=== PATIENT | female | born 1960 ===

== ENCOUNTER 2016-11-19 05:34 | Inpatient (IN) | payer OTHER ==
[2016-11-19] VITALS (18 sets, daily range): BP systolic 86–119; BP diastolic 49–66
[~2016-11-19] VITALS: Ht 165.1 cm; Wt 65.8 kg
[~2016-11-19 05:34] MED LIST: MELOXICAM7.5 MG PO
[2016-11-19] MEDS ORDERED: Thrombin 5000 units TOPIC ONE (06:11)
[2016-11-19] MEDS ORDERED: Bacitracin Oint 15gm Tube TOPIC ONE (06:11)
[2016-11-19] MEDS ORDERED: Bacitracin 50000 Units Vial ONE (06:13)
[2016-11-19] MEDS ORDERED: Thrombin 5000 units spray kit TOPIC ONE (06:13)
[2016-11-19] MEDS ORDERED: Gelfoam Absorbable 1gm powder pkt TOPIC ONE (06:13)
[2016-11-19] MEDS ORDERED: TYLENOL EXTRA500 MG ORAL (06:29)
[2016-11-19] MEDS ORDERED: Surgicel 4in x 8in TOPIC ONE (06:35)
[2016-11-19] MEDS ORDERED: Vancomycin 1gm inj IVPB ONE (06:52)
[2016-11-19] MEDS ORDERED: Vancomycin 1gm/D5W 275ml IVPB ONE ×2 (07:00)
[2016-11-19] MEDS ORDERED: Pantoprazole Inj IVP ONE (07:00)
[2016-11-19 07:26] LABS: APPEARANCE,URINE CLEAR; KETONES,URINE NEGATIVE (NEGATIVE); LEUKOCYTE ESTERASE ,URINE 1+ (NEGATIVE); NITRITE,URINE NEGATIVE (NEGATIVE); PH,URINE 7 (4.5-8.0); PROTEIN,URINE NEGATIVE (NEGATIVE); UROBILINOGEN,URINE NORMAL MG/DL (0.0-1.0)
[2016-11-19] MEDS ORDERED: Succinylcholine 20mg/ml 10ml vial ONE (07:30)
[2016-11-19] MEDS ORDERED: Morphine Sulfate 10mg/ml Inj ONE (07:30)
[2016-11-19] MEDS ORDERED: NS Irrig 1000ml ONE (07:30)
[2016-11-19] MEDS ORDERED: Dexamethasone 4mg/ml vial ONE (07:30)
[2016-11-19] MEDS ORDERED: Zemuron 50mg/5ml Inj IV ONE (07:30)
[2016-11-19] MEDS ORDERED: Propofol 10mg/ml 100ml btl IV ONE (07:30)
[2016-11-19] MEDS ORDERED: Sterile Water Irrig 1000ml IRRIG ONE (07:30)
[2016-11-19] MEDS ORDERED: fentaNYL 100 mcg/2 mL IV ONE (07:30)
[2016-11-19] MEDS ORDERED: Midazolam 2mg/2ml Inj ONE (07:30)
[2016-11-19] MEDS ORDERED: Ketorolac 30mg Inj ONE (07:30)
--- NOTE | 2016-11-19 07:34 | Pre-Procedure Note/Attestation ---
Pre-Procedure Note/Attestation Complete Prior to Procedure Planned Procedure: bilateral Procedure Narrative: Posterior lumbar decompressive surgery bilateral at L4-5 (redo-left side), discectomy, interspinous fusion at L4-5 with posterolateral arthrodesis, using allograft, autograft and bone marrow aspiration. Attestation I attest that I discussed the nature of the procedure; its benefits; risks and complications; and alternatives (and the risks and benefits of such alternatives ), prior to the procedure, with the patient (or the patient's legal sales representative electric service). I attest that, if there was a reasonable possibility of needing a blood transfusion, the patient (or the patient's legal sales representative electric service) was given the [place] [facility] standardized written summary, pursuant to the Pablo Elsa Blood Safety Act ([place] Health and Safety Code # 1645, as amended). I attest that I re-evaluated the patient just prior to the surgery and that there has been no change in the patient's H&P, except as documented below: TORIBIO LYLES Nov 19, 2016 07:34
[2016-11-19 07:36] LABS: BACTERIA,URINE OCCASIONAL /HPF; RBC,URINE 0-2 /HPF (0 - 2); SQUAMOUS EPITHELIAL CELL,UR OCCASIONAL /LPF (NONE/OCC)
--- NOTE | 2016-11-19 07:46 | General Progress Note ---
Progress Note Progress Note Neurosurgery preop Note I reviewed all of the preop lab and discussed with Anesthesiologist. The U/a from Dr. Pichardo's labs showed 10-25 WBC. She is and has been completely asymptomatic without any signs of a urinaru tract infection. A repeat U/a was done this am which is clean.will proceed with the plan surgery. Risk, benefits and alternative were explaine dto her and with a manager golf. She signed the consent to proceed. Laboratory Tests Test 11/19/16 07:11 Urine Color Pale yellow Urine Appearance Clear Urine pH 7 (4.5-8.0) Urine Specific [place] 1.005 (1.005-1.035) Urine Protein Negative (NEGATIVE) Urine Glucose (UA) Negative (NEGATIVE) Urine Ketones Negative (NEGATIVE) Urine Occult Blood Negative (NEGATIVE) Urine Nitrite Negative (NEGATIVE) Urine Bilirubin Negative (NEGATIVE) Urine Urobilinogen Normal MG/DL (0.0-1.0) Urine Leukocyte Esterase 1+ (NEGATIVE) H Urine RBC 0-2 /HPF (0 - 2) Urine WBC 2-4 /HPF (0 - 2) Urine Squamous Epithelial Cells Occasional /LPF Urine Bacteria Occasional /HPF (NONE) TORIBIO LYLES Nov 19, 2016 07:46
[2016-11-19] MEDS ORDERED: Bupivacaine w/Epi 0.25% 30ml Vial INJ ONE (08:10)
[2016-11-19] MEDS ORDERED: LR 1000ml 1,000 ML IVLG SCH (08:58)
--- NOTE | 2016-11-19 08:58 | Anethesia Preoperative Eval ---
Anesthesia Pre-op PMH/ROS General Date of Evaluation: Nov 19, 2016 Time of Evaluation: 06:55 Anesthesiologist: Trinidad ASA Score: ASA 2 Mallampati Score Class I : Soft palate, uvula, fauces, pillars visible Class II: Soft palate, uvula, fauces visible Class III: Soft palate, base of uvula visible Class IV: Only hard plate visible Mallampati Classification: Class II Surgeon: Garret Diagnosis: Lumbar radiculopathy Surgical Procedure: L4-L5 bilateral decompression with interbody fusion Anesthesia History: none Social History: smoking - h/o Family History: no anesthesia problems Allergies: Coded Allergies: Cat Dander (Verified Allergy, Mild, 11/19/16) sneezing Cultivated Oat Pollen (Verified Allergy, Mild, 11/19/16) sneezing Medications: see eMAR Past Medical History Cardiovascular: Denies: CAD, HTN, [place], arrhythmia, other, valve dz Pulmonary: Denies: COPD, DM, asthma, other Gastrointestinal/Genitourinary: Reports: GERD, Denies: CRI, ESRD, other Neurologic/Psychiatric: Reports: other - chronic pain, Denies: CVA, TIA, dementia, depression/anxiety Endocrine: Denies: DM, hypothyroidism, other, steroids HEENT: Denies: KAW (L), KAW (R), cataract (L), cataract (R), glaucoma, other Hematology/Immune: Denies: DVT, anemia, bleeding disorder, other Musculoskeletal/Integumentary: Denies: DDD, DJD, OA, RA, edema, other PMH Narrative: as above PSxH Narrative: C sections x 2, Lumbar laminotomy Anesthesia Pre-op Phys. Exam Physician Exam Last Vital Signs Date Time Temp Pulse Resp B/P Pulse Ox O2 Delivery O2 Flow Rate FiO2 11/19/16 06:29 97.6 58 20 119/62 98 Room Air Constitutional: NAD Neurologic: CN 2-12 intact Cardiovascular: RRR, no M/R/G Respiratory: CTA Gastrointestinal: S/NT/ND Airway Exam Mallampati Score: Class II MO: full Neck: flexible ROM: full Teeth: intact Dentures: no lower, no upper Anesthesia Pre-op A/P Labs see charte, on preoperative urinalysis from 11/13 WBC 20-25 and bacteria present according to the patient she never had any dysuria or any other symptoms, she never been told about the abnormalities in her labwork and never received any treatments for that. Considering the nature of upcoming surgery we will check her urinalysis STAT to rule out any possible UTI. Studies Pre-op Studies: EKG - NSR Risk Assessment & Plan Assessment: ASA 2 Plan: GA with ETT prone position PONV prevention, neuromonitoring Status Change Before Surgery: No Pre-Antibiotics Drug: Vancomycin 1gr. Gentamycin 80mg. Given Within 1 Hr of Incision: Yes Time Given: 08:45 COURTNEY GROVER M.D. Nov 19, 2016 08:58
[2016-11-19] MEDS ORDERED: fentaNYL 100 mcg/2 mL IV PRN (09:00)
[2016-11-19] MEDS ORDERED: Meperidine 25mg/ml Inj IV PRN (09:00)
[2016-11-19] MEDS ORDERED: DiphenhydrAMINE 50mg/ml Inj IVP PRN ×2 (09:00→09:15)
[2016-11-19] MEDS ORDERED: Metoclopramide 10mg/2ml Inj IVP PRN (09:00)
[2016-11-19] MEDS ORDERED: Hydromorphone 0.5mg/0.5ml inj IVP PRN (09:00)
[2016-11-19] MEDS ORDERED: Midazolam 2mg/2ml Inj IVP PRN (09:00)
[2016-11-19] MEDS ORDERED: Rate Change PCA 1 Each MISC PRN (09:15)
[2016-11-19] MEDS ORDERED: Naloxone 0.4mg/ml Inj IVP PRN ×2 (09:15→22:00)
[2016-11-19] MEDS ORDERED: PCA HYDROmorphone 1mg/ml 30 ML IV PRN (09:15)
[2016-11-19] MEDS ORDERED: LORazepam 1mg tab ORAL PRN (09:15)
--- NOTE | 2016-11-19 10:24 | Brief Operative Note ---
Immediate Post Operative Note Operative Note Chief Complaint: lower back pain and lower extremity radiculopathy Pre-op Diagnosis: Intractable low back pain and radiculopathy s/p left L4-5 lumbar disectomy recurrent left lower extremity radiculopathy lack of improvement form conservative care and interventional pain management Procedure: Right L4 and rdo Left L4 hemilaminotomies, medial fecetectomires and foraminotomies. Left L4-5 redo disectomy removal of epidural scar internal neurolysis of Left L5 nerve root Interspinous fusion at L4-5 using Benefix 12-mm fixator Posterolateral arthrodesis at L4-5 bilaterally Use of harvested autograft from laminotomy, bone marrow aspirate and allograft for posterolateral and interspinous fusion Aspiration of bone marrow fom the right iliac crest Microdissection using operatie microscope Localization of spine with use, supervision and interpretation of fluoroscopy Use and interpretation of intra-operative neuromonitoring Surgeon: Tahmina Combs MD Excel Expert: Eloy Orozco MD Anesthesiologist: Dr Trinidad DURAN Anesthesia: general Specimen: yes - disc L4-5 Complications: none Condition: stable Fluids: 1.2 l crystalloids Estimated Blood Loss: volume - 20 c Drains: none Implant(s) used?: Yes - Benefix ISP fixator and[place] TAHMINA COMBS Nov 19, 2016 10:24
[2016-11-19] MEDS ORDERED: Acetaminophen 650 MG SUPP RECTAL PRN (10:45)
[2016-11-19] MEDS ORDERED: Milk of Magnesia 30ml Ud ORAL PRN (10:45)
[2016-11-19] MEDS ORDERED: PCA HYDROmorphone 1mg/ml 30 ML IV ONE (10:53)
--- NOTE | 2016-11-19 10:54 | General Progress Note ---
Progress Note Progress Note Neurosurgery post-op S/ Comfortable. No leg pain O/ AF Vs nl Alert and oriented Moves all extremities well Dressing dry and intact normal sensation in all limbs doing well admit lumbar brace TORIBIO LYLES Nov 19, 2016 10:54
--- NOTE | 2016-11-19 12:25 | Immediate Post-Op Evaluation ---
Immediate Post-Op Evalulation Immediate Post-Op Evalulation Procedure: L4-L5 bilateral decompression with interspinal fusion Date of Evaluation: Nov 19, 2016 Time of Evaluation: 10:32 IV Fluids: 1200 Blood Products: none Estimated Blood Loss: <50 Urinary Output: none Blood Pressure Systolic: 102 Blood Pressure Diastolic: 56 Pulse Rate: 74 Respiratory Rate: 20 O2 Sat by Pulse Oximetry: 99 Temperature (Fahrenheit): 97.5 Pain Score (1-10): 2 Nausea: No Vomiting: No Complications none Patient Status: awake, patent, extubated, none Hydration Status: adequate COURTNEY GROVER M.D. Nov 19, 2016 12:25
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
[2016-11-19] MEDS: D5 1/2NS w/KCl 20mEq 1,000 ML IV SCH (15:26)
--- NOTE | 2016-11-19 16:25 | General Progress Note ---
Progress Note Progress Note Neurosurgery PO floor nore S/ Comfortable. No leg pain O/ Af Vs nl Alert and oriented. Pleasant and smiling Moves all extremities well dressing dry normal motor exam bilateral uppers and lowers normal sensation in all extremities Pt to user her lumbar brace d/c planning TORIBIO LYLES Nov 19, 2016 16:25
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
[2016-11-19] MEDS: Pericolace tab ORAL SCH (18:27)
[2016-11-19] MEDS: Docusate 100mg tablet ORAL SCH (18:27)
[2016-11-19] MEDS: Vancomycin 1 GM in D5W 275 ML IVPB SCH (18:28)
[2016-11-19] MEDS ORDERED: PCA shift volume MISC SCH (19:00)
--- NOTE | 2016-11-19 19:47 | General Progress Note ---
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 pulse ox monitoring Subjective Date patient seen: Nov 19, 2016 Time patient seen: 19:45 Constitutional: Reports: no symptoms HEENT: Reports: no symptoms Cardiovascular: Reports: no symptoms Respiratory: Reports: no symptoms Allergies: Coded Allergies: Cat Dander (Verified Allergy, Mild, 11/19/16) sneezing Cultivated Oat Pollen (Verified Allergy, Mild, 11/19/16) sneezing Objective Last 24 Hour Vital Signs Date Time Temp Pulse Resp B/P Pulse Ox O2 Delivery O2 Flow Rate FiO2 11/19/16 16:19 99.3 78 21 93/65 96 Nasal Cannula 11/19/16 16:00 20 11/19/16 14:52 98.2 71 21 92/62 100 Nasal Cannula 11/19/16 14:30 63 18 90/53 100 Nasal Cannula 3.0 11/19/16 14:22 98.1 60 19 95/53 100 Nasal Cannula 11/19/16 13:47 97.7 63 19 90/53 100 Nasal Cannula 11/19/16 12:49 20 11/19/16 12:30 97.7 67 13 98/59 97 Nasal Cannula 3.0 11/19/16 12:25 74 20 99 11/19/16 12:19 20 11/19/16 12:15 69 14 97/61 98 Nasal Cannula 3.0 11/19/16 12:00 64 9 100/64 97 Nasal Cannula 3.0 11/19/16 11:49 20 11/19/16 11:45 71 16 93/66 97 Nasal Cannula 3.0 11/19/16 11:34 20 11/19/16 11:30 67 18 92/61 99 Nasal Cannula 3.0 100 11/19/16 11:19 20 11/19/16 11:15 70 18 96/65 99 Nasal Cannula 3.0 100 11/19/16 11:11 20 11/19/16 11:00 72 18 103/65 98 Simple Mask 8.0 100 11/19/16 10:45 69 18 100/61 98 Simple Mask 8.0 100 11/19/16 10:30 75 18 99/60 98 Simple Mask 8.0 100 11/19/16 10:25 68 18 89/52 98 Simple Mask 8.0 100 11/19/16 10:20 97.8 67 18 86/49 98 Simple Mask 8.0 100 11/19/16 06:29 97.6 58 20 119/62 98 Room Air Laboratory Tests 11/19/16 07:11: Urine Color Pale yellow, Urine Appearance Clear, Urine pH 7, Urine Specific [place] 1.005, Urine Protein Negative, Urine Glucose (UA) Negative, Urine Ketones Negative, Urine Occult Blood Negative, Urine Nitrite Negative, Urine Bilirubin Negative, Urine Urobilinogen Normal, Urine Leukocyte Esterase 1+H, Urine RBC 0-2, Urine WBC 2-4, Urine Squamous Epithelial Cells Occasional, Urine Bacteria Occasional Height (Feet): 5 Height (Inches): 5.00 Weight (Pounds): 145 General Appearance: WD/WN Neck: non-tender Cardiovascular: normal rate, regular rhythm Respiratory/Chest: lungs clear Abdomen: soft Extremities: other - no edema CHRISSIE ROBERTS Nov 19, 2016 19:47
[2016-11-19] MEDS ORDERED: HYDROmorphone 1mg/ml Carpuject IVP PRN (21:45)
[2016-11-19] MEDS ORDERED: Norco 7.5mg/325mg tab ORAL PRN (21:45)
[2016-11-20 00:22] VITALS: BP 95/55
[2016-11-20] MEDS: D5 1/2NS w/KCl 20mEq 1,000 ML IV SCH ×2 (02:35→11:00)
[2016-11-20] MEDS: Norco 7.5mg/325mg tab ORAL PRN ×2 (03:50→06:36)
[2016-11-20 04:07] VITALS: BP 95/59
[2016-11-20] MEDS: Vancomycin 1 GM in D5W 275 ML IVPB SCH (06:27)
[2016-11-20 07:49] VITALS: BP 120/62
[2016-11-20 07:52] LABS: ANION GAP 15 (5-15); CALCIUM 8.7 mg/dL (8.6-10.2); CARBON DIOXIDE 24 mEQ/L (20-30); CHLORIDE 102 mEQ/L (98-107); CREATININE 0.7 mg/dL (0.5-0.9); GLOMERULAR FILTRATION RATE > 60 mL/min (>60); HEMOLYSIS 2; POTASSIUM 4.5 mEQ/L (3.4-4.9); SODIUM 141 mEQ/L (135-145)
--- NOTE | 2016-11-20 08:25 | General Progress Note ---
Progress Note Progress Note S/ minimal pain. No leg pain. Ambulating with PT. O/ Vs: Last 24 Hour Vital Signs Date Time Temp Pulse Resp B/P Pulse Ox O2 Delivery O2 Flow Rate FiO2 11/20/16 07:49 97.5 71 19 120/62 97 Room Air 11/20/16 07:35 98.1 11/20/16 04:07 98.1 60 20 95/59 98 Nasal Cannula 3.0 11/20/16 00:22 98.1 64 19 95/55 97 Nasal Cannula 3.0 11/19/16 23:30 98.2 11/19/16 20:42 98.2 73 19 104/62 96 Nasal Cannula 11/19/16 20:00 20 11/19/16 16:19 99.3 78 21 93/65 96 Nasal Cannula 11/19/16 16:00 20 11/19/16 14:52 98.2 71 21 92/62 100 Nasal Cannula 11/19/16 14:30 63 18 90/53 100 Nasal Cannula 3.0 11/19/16 14:22 98.1 60 19 95/53 100 Nasal Cannula 11/19/16 13:47 97.7 63 19 90/53 100 Nasal Cannula 11/19/16 12:49 20 11/19/16 12:30 97.7 67 13 98/59 97 Nasal Cannula 3.0 11/19/16 12:25 74 20 99 11/19/16 12:19 20 11/19/16 12:15 69 14 97/61 98 Nasal Cannula 3.0 11/19/16 12:00 64 9 100/64 97 Nasal Cannula 3.0 11/19/16 11:49 20 11/19/16 11:45 71 16 93/66 97 Nasal Cannula 3.0 11/19/16 11:34 20 11/19/16 11:30 67 18 92/61 99 Nasal Cannula 3.0 100 11/19/16 11:19 20 11/19/16 11:15 70 18 96/65 99 Nasal Cannula 3.0 100 11/19/16 11:11 20 11/19/16 11:00 72 18 103/65 98 Simple Mask 8.0 100 11/19/16 10:45 69 18 100/61 98 Simple Mask 8.0 100 11/19/16 10:30 75 18 99/60 98 Simple Mask 8.0 100 11/19/16 10:25 68 18 89/52 98 Simple Mask 8.0 100 11/19/16 10:20 97.8 67 18 86/49 98 Simple Mask 8.0 100 Alert and oriented. Pleasant and smiling moves all extremities well lower extremities are strong distally incision completely dry doing well PT Lumbar brace is on th ept D/c instructions given to pt in detail and d/w nursing Labs Laboratory Tests Test 11/20/16 05:30 Sodium Level 141 mEQ/L (135-145) Potassium Level 4.5 mEQ/L (3.4-4.9) Chloride Level 102 mEQ/L (98-107) Carbon Dioxide Level 24 mEQ/L (20-30) Anion Gap 15 (5-15) Blood Urea Nitrogen 8 mg/dL (7-23) Creatinine 0.7 mg/dL (0.5-0.9) Estimat Glomerular Filtration Rate > 60 mL/min (>60) Glucose Level 128 mg/dL (74-106) H Calcium Level 8.7 mg/dL (8.6-10.2) TORIBIO LYLES Nov 20, 2016 08:25
[2016-11-20 08:36] VITALS: BP 116/58
--- NOTE | 2016-11-20 08:36 | 48 Hour Post Anesthesia Eval ---
Post Anesthesia Evaluation Procedure: L4-L5 bilateral decompression with interspinal fusion Date of Evaluation: Nov 20, 2016 Time of Evaluation: 08:35 Blood Pressure Systolic: 116 0: 58 Pulse Rate: 64 Respiratory Rate: 20 Temperature (Fahrenheit): 97.6 O2 Sat by Pulse Oximetry: 98 Airway: patent Nausea: No Vomiting: No Pain Intensity: 2 Hydration Status: adequate Cardiopulmonary Status: stable Mental Status/LOC: patient returned to baseline Follow-up Care/Observations: n/a Post-Anesthesia Complications: none Follow-up care needed: N/A COURTNEY GROVER M.D. Nov 20, 2016 08:36
[2016-11-20] MEDS: Docusate 100mg tablet ORAL SCH (08:48)
[2016-11-20] MEDS: Pericolace tab ORAL SCH (08:48)
[2016-11-20] MEDS ORDERED: NORCO1 E1 ORAL (11:14)
[2016-11-20] MEDS ORDERED: COLACE100 MG ORAL (11:15)
[2016-11-20] MEDS ORDERED: CYCLOBENZAPRINE10 MG ORAL (11:16)
--- NOTE | 2016-11-20 23:48 | Discharge Summary ---
DATE OF ADMISSION: 11/19/2016 DATE OF DISCHARGE: 11/20/2016 DISCHARGE DIAGNOSES: Status post posterior lumbar decompressive surgery right L4-L5 and redo left L4-L5 with interspinous fusion posterolateral arthrodesis and bone marrow aspiration. HISTORY OF PRESENT ILLNESS: Please refer to the chart for detailed History and Physical. HOSPITAL COURSE: The patient was admitted on 11/19/2016 underwent uneventful lumbar decompressive surgery, removal of epidural scar, internal neurolysis, decompression of L4-L5 level bilaterally, interspinous fusion, and posterolateral arthrodesis. She has done well postoperatively. She has no leg pain. Incisional pain is minimal at this point. She is ambulating with physical therapy. She is being discharged home with appropriate discharge instructions. DISPOSITION: Home. DISCHARGE INSTRUCTIONS: The patient is instructed regarding wound care. In case of fever, chills, drainage from the incision, the patient is to contact Dr. Combs or go to the nearest ER. DISPOSITION: Home. ACTIVITY: The patient is asked to wear the lumbar brace when out of bed. Avoid bending, lifting, twisting until further cleared by Dr. Combs. MEDICATIONS: The patient is to take prescribed medication as detailed [place], Flexeril, and Colace. DIET: Regular. FOLLOWUP: Follow up with Dr. Combs in two weeks. CONSULTATION: Internal Medicine, Dr. Yusef Pichardo. Tahmina Combs M.D. DR: Narcisa JOB#: [id number] CC:
[2016-11-21] MEDS ORDERED: Norco 7.5mg/325mg tab ORAL PRN ×2 (10:45)
[2016-11-21] MEDS ORDERED: HYDROmorphone 1mg/ml Carpuject IVP PRN (10:45)
== END 2016-11-20 12:00 | disposition home or self-care (01) | DRG 460 ==
LOC: SDSOVERFLO 05:34 → 3E 12:45
DX: M51.16 Intervertebral disc disorders with radiculopathy, lumbar region (principal); G96.12 Meningeal adhesions (cerebral) (spinal); V49.49XS Driver injured in collision with other motor vehicles in traffic accident, sequela; Z98.1 Arthrodesis status; M48.06 Spinal stenosis, lumbar region
CPT/HCPCS: 36415; 72020; 76001; 80048; 81001; 86850; 86900; 86901; 87081; 94003; 94150; C9399; J1580; J2250; J2405